=== PATIENT | female | born 1995 | race Caucasian/White ===

== ENCOUNTER 2022-04-22 00:29 | Outpatient (CLI) | payer OTHER, SELFPAY ==
--- NOTE | 2022-04-22 06:46 | PM.OBTRLD ---
Visit Information Visit Information Date of evaluation: 04/22/22 On-call OB Provider: Shelly Alvarez Reason for Evaluation: Yes rupture of membranes Comments/Additional reasons for admission: 26 year at 34 weeks and 6 days with concern for rupture of membranes. She was intercourse with and thought she felt some leaking of fluid. She has continued to leak. No contractions or bleeding. Good movement. Vital Signs Vital Signs: Temperature 36.3? blood pressure 135/69 heart rate 67 Evaluation Evaluation Baseline heart rate: 130 Variability: Moderate (11-25) monitor accelerations: Present Monitor Decelerations: Absent Category of Tracing: Reactive Diagnosis, Plan/Disposition Plan/Disposition Plan: 26-year-old at 34 weeks and 6 days with concern for rupture of membranes. She has not had ongoing leaking. AmniSure negative. No signs of labor. Follow-up with primary OB or return as needed. OB Disposition: home
== END 2022-04-22 01:05 | disposition home or self-care (01) ==
LOC: LABOR 00:37 → OB 04-24 16:46
PROVIDERS: Referring Provider Family Medicine; Visit Provider Family Medicine
DX: Z03.71 Encounter for suspected problem with amniotic cavity and membrane ruled out (principal); Z3A.34 34 weeks gestation of pregnancy
CPT/HCPCS: 59025; 84112; G0378; G0379